=== PATIENT | male | born 1975 | race Caucasian/White ===

== ENCOUNTER 2022-10-28 06:23 | Day surgery (SDC) | payer MEDICAID ==
[~2022-10-28] VITALS: Ht 175.3 cm; Wt 95.3 kg
[2022-10-28] MEDS ORDERED: SIMETHICONE 40 MG/0.6 ML ML ONE (06:54)
[2022-10-28] MEDS ORDERED: fentaNYL CITRATE/PF 100 MCG/2 ML AMP ONE (06:54)
[2022-10-28] MEDS ORDERED: MIDAZOLAM HCL 5 MG/5 ML VIAL ONE (06:55)
[2022-10-28 16:23] VITALS: BP_SYST 117
== END 2022-10-28 10:12 | disposition home or self-care (01) ==
LOC: SDS 06:23 → SMU 06:24 → SDS 10:12
PROVIDERS: ATTEND Internal Medicine
DX: Z12.11 Encounter for screening for malignant neoplasm of colon (principal); K63.5 Polyp of colon; K64.8 Other hemorrhoids; Z20.822 Contact with and (suspected) exposure to COVID-19
CPT/HCPCS: 36415 ×2; 45380; 87426; 88305; 99152; U0003; G0378; J2250; J3010